=== PATIENT | male | born 1970 | race Caucasian/White ===

== ENCOUNTER 2019-09-29 08:29 | Day surgery (SDC) | payer OTHER ==
[~2019-09-29] VITALS: Ht 172.7 cm; Wt 82.1 kg
[2019-09-29] MEDS ORDERED: LIPITOR 40MG TA40 MG PO (09:24)
[2019-09-29] MEDS ORDERED: ASTELIN NASAL S34 ML NS (09:25)
[2019-09-29] MEDS ORDERED: MASON NATURAL2000 IU PO (09:26)
[2019-09-29] MEDS ORDERED: LIORESAL20 MG PO (09:27)
[2019-09-29] MEDS ORDERED: CAPSAICIN60 GM TP (09:28)
[2019-09-29] MEDS ORDERED: ZYRTEC 10MG10 MG PO (09:29)
[2019-09-29] MEDS ORDERED: STOOL SOFTENER100 M2 PO (09:30)
[2019-09-29] MEDS ORDERED: SINGULAIR 110 MG/TAB PO (09:31)
[2019-09-29] MEDS ORDERED: FLONASE NASAL S16 GM NS (09:31)
[2019-09-29] MEDS ORDERED: NEURONTIN300 MG/CAP PO (09:31)
[2019-09-29 09:32] VITALS: BP 111/86; PULSE 63; TEMP 98.7
[2019-09-29 10:30] VITALS: BP 108/75; PULSE 72; TEMP 98.6
--- NOTE | 2019-09-29 10:30 | NUR ---
PT TO BAY 6 ON CART FROM PROCEDURE ROOM. PT WALKS FROM CART TO CHAIR WITH ASSISTANCE. PT DENIES C/O. VITAL SIGNS STABLE.
[2019-09-29 10:45] VITALS: BP 97/73; PULSE 67
--- NOTE | 2019-09-29 10:45 | NUR ---
PT CONTINUES TO DENY C/O. VITAL SIGNS STABLE. DR PASCUAL IN ROOM TALKING TO PT. PT EATING MUFFIN AND DRINKING WATER AND APPLE JUICE. CALL LIGHT NEXT TO PT.
[2019-09-29 11:00] VITALS: BP 114/82; PULSE 67
--- NOTE | 2019-09-29 11:00 | NUR ---
PT CONTINUES TO DENY C/O. VITAL SIGNS STABLE. DISCHARGE INSTRUCTIONS REVIEWED WITH PT. PT VERBALIZES UNDERSTANDING. IV DISCONTINUED. ALL PARTS INTACT. WHEELCHAIR RIDE TO PT CAR.
== END 2019-09-29 11:05 | disposition home or self-care (01) ==
LOC: SDCO 08:29
DX: Z12.11 Encounter for screening for malignant neoplasm of colon (principal); K21.0 Gastro-esophageal reflux disease with esophagitis; K25.7 Chronic gastric ulcer without hemorrhage or perforation; E78.00 Pure hypercholesterolemia, unspecified; Z86.010 Personal history of colon polyps
CPT/HCPCS: J2250; J2405; J3010; J7030